=== PATIENT | male | born 1955 | race Caucasian/White ===

== ENCOUNTER 2017-11-23 08:15 | Day surgery (SDC) | payer SELFPAY ==
[2017-11-23] MEDS ORDERED: LIDOCAINE 1% 2 ML INJ ID PRN (08:36)
[2017-11-23] MEDS ORDERED: LR 1,000 ML IV ONE (08:36)
[2017-11-23] MEDS ORDERED: BUPIVACAINE/EPI 0.5% 30 ML SDV ONE ×2 (08:48→10:48)
[2017-11-23] MEDS ORDERED: VANCOMYCIN 1 GM VIAL ONE (08:48)
[2017-11-23] MEDS ORDERED: BACITRACIN 50,000 UNITS/10 ML SYR IRR ONE (08:49)
[2017-11-23] MEDS ORDERED: morphINE SR 15 MG TAB PO ONE (08:53)
[2017-11-23] MEDS ORDERED: TRANEXAMIC ACID 1,000 MG in NS 100 ML IV ONE (08:53)
[2017-11-23] MEDS ORDERED: ACETAMINOPHEN 500 MG TAB PO ONE (08:53)
[2017-11-23] MEDS ORDERED: ceFAZolin 2 GM/DEXTROSE 100 ML IV ONE (08:53)
--- NOTE | 2017-11-23 08:55 | PDHPUP ---
History & Physical Update H&P update statement: This history and physical update is based on an assessment of the patient which was completed after admission or registration (within 24 hours), but prior to the surgery/procedure. H&P update: no change in patient's condition since H&P completed (No changes in H&P)
[2017-11-23] MEDS ORDERED: MIDAZOLAM 2 MG/2 ML VIAL IVP ONE (09:16)
--- NOTE | 2017-11-23 09:17 | PDANEPAE ---
ANE History of Present Illness burst fracture ANE Past Medical History - Cardiovascular History Hx Hypertension: No Hx Arrhythmias: No Hx Chest Pain: No Hx Coronary Artery / Peripheral Vascular Disease: No Hx CHF / Valvular Disease: No Hx Palpitations: No - Pulmonary History Hx COPD: No Hx Asthma/Reactive Airway Disease: No Hx Recent Upper Respiratory Infection: No Hx Oxygen in Use at Home: No Hx Sleep Apnea: No Sleep Apnea Screening Result - Last Documented: Negative - Neurologic History Hx Cerebrovascular Accident: No Hx Seizures: No Hx Dementia: No - Endocrine History Hx Diabetes: No Hypothyroid: No Hyperthyroid: No - Renal History Hx Renal Disorders: No - Liver History Hx Hepatic Disorders: No - Neurological & Psychiatric Hx Hx Neurological and Psychiatric Disorders: No - Cancer History Hx Cancer: No - Congenital Disorder History Hx Congenital Disorders: No - GI History GERD: moderate Hx Gastrointestinal Disorders: No - Other Health History Other Health History: wears reading glasses - Chronic Pain History Chronic Pain: No (back currently) - Surgical History Prior Surgeries: nasal surgeries x3. left foot reconstruction. left great toe rebuilt. left knee scope. hernia repair x2. left shoulder surgery x2 ANE Review of Systems Review of Systems: - Exercise capacity Exercise capacity: >=4 METS METS (RN): 5 METS ANE Patient History - Allergies Allergies/Adverse Reactions: ketamine Allergy (Verified 11/22/17 10:58) felt like he was dying- everything went white Tetracyclines Allergy (Verified 11/22/17 10:44) Rash/Hives - Home Medications Home medications: home medication list seen and reviewed Home Medications: NK [No Known Home Meds] 11/22/17 [Last Taken Unknown] - NPO status NPO Status: no food or drink >8 hours NPO Since - Liquids (Date): 11/22/17 NPO Since - Liquids (Time): 23:00 NPO Since - Solids (Date): 11/22/17 NPO Since - Solids (Time): 23:00 - Anes Hx Anes Hx: no prior problems - Smoking Hx Smoking Status: Never smoked - Family Anes Hx Family Hx Anesthesia Complications: father and brother - have the same issues. father woke up during heart surgery ANE Labs/Vital Signs - Labs Result Diagrams: 11/23/17 09:00 - Vital Signs Blood Pressure: 118/85 Heart Rate: 67 Respiratory Rate: 16 O2 Sat (%): 95 Height: 182.88 cm Weight: 91.626 kg ANE Physical Exam - Airway Mallampati Score: Class 2 Mouth exam: normal dental/mouth exam - Pulmonary Pulmonary: no respiratory distress - Cardiovascular Cardiovascular: regular rate and rhythym - ASA Status ASA Status: II ANE Anesthesia Plan Anesthesia Plan: general endotracheal anesthesia
[2017-11-23] MEDS ORDERED: PROPOFOL/EMULSION 500 MG/50 ML BOTTLE IV ONE ×3 (09:21→11:13)
[2017-11-23] MEDS ORDERED: ONDANSETRON 4 MG/2 ML VIAL ONE (09:21)
[2017-11-23] MEDS ORDERED: ROCURONIUM 50 MG/5 ML VIAL ONE (09:21)
[2017-11-23] MEDS ORDERED: LIDOCAINE 2% 2 ML INJ ONE ×2 (09:21)
[2017-11-23] MEDS ORDERED: fentaNYL 100 MCG/2 ML INJ ONE ×2 (09:21→12:31)
[2017-11-23] MEDS ORDERED: KETOROLAC 30 MG/1 ML SDV ONE (09:21)
[2017-11-23] MEDS ORDERED: DEXAMETHASONE 4 MG/ML VIAL ONE (09:21)
[2017-11-23] MEDS ORDERED: SUCCINYLCHOLINE CHLORIDE 200 MG/10 ML SYR IVP ONE (09:21)
[2017-11-23 09:27] LABS: PLATELET COUNT 265 10^3/uL (150-400)
[2017-11-23] MEDS ORDERED: fentaNYL 100 MCG/2 ML INJ IVP PRN (11:06)
[2017-11-23] MEDS ORDERED: LR 500 ML IV PRN (11:06)
[2017-11-23] MEDS ORDERED: ALBUTEROL 3 ML DEYVIAL IH PRN (11:06)
[2017-11-23] MEDS ORDERED: HYDROmorphONE/DILAUDID 2 MG/ML INJ IVP PRN (11:06)
[2017-11-23] MEDS ORDERED: NALOXONE HCL 0.4 MG/ML INJ IVP PRN (11:06)
[2017-11-23] MEDS ORDERED: ePHEDrine SULFATE 25 MG/5 ML SYR ONE (11:30)
[2017-11-23] MEDS ORDERED: PROPOFOL 200 MG/20 ML VIAL ONE (12:02)
[2017-11-23] MEDS ORDERED: SUGAMMADEX SODIUM 200 MG/2 ML VIAL IVP ONE (12:16)
--- NOTE | 2017-11-23 13:01 | POSTANESTH ---
Post Anesthetic Evaluation Cardiovascular Status: Normal, Stable Respiratory Status: Normal, Stable Level of Consciousness/Mental Status: Can Participate in Eval Pain Control: Adequate, Prn Tx Ordered Nausea/Vomiting Control: Adequate, Prn Tx Ordered Complications Possibly Related to Anesthesia: None Noted
[2017-11-23 13:53] VITALS: BP 104/79
--- NOTE | 2017-11-23 15:30 | SUROPNOTE ---
[facility] Operative Report - Surgery Date: 11/23/17 Pre-operative Diagnoses: T12 burst fracture Thoracolumbar Kyphosis Intractable pain Post-operative Diagnosis: Same Procedures: T10 to L2 percutaneous instrumentation and stabilization Use of intraoperative computer-aided navigation Use of intra-operative fluoroscopy Use of intra-operative neuromonitoring, including EMG and SSEP modalities Surgeon: Sammy Smith MD Assist: None Anesthesia: General endotracheal anesthesia Findings: As expected Estimated Blood Loss: 150mL Drains: None Specimens: None Complications: None Condition: Transferred to PACU in stable condition. Implants: [employer] Solera Voyager 5.5mm Screws: 6.5x45mm x 8 Rods: 160mm CoCr bilaterally Indications: This patient was seen in my office and diagnosed with a T12 burst fracture, with local kyphosis and intractable pain. I have explained all options of treatment for the patient, and the patient has elected to proceed with operative management. I have explained all risks, benefits, and alternatives of the proposed procedure. The risks that we have discussed include , blindness, nerve damage, infection, dural tear, failure of surgery to alleviate pre-operative symptoms, and possible need for further operation. I explained separately the risks of allograft, including infection and disease transfer. In addition to the aforementioned procedure, I discussed with the patient that other procedures may be indicated during the course of surgery that would be considered in the patients best interest. The patient expressed understanding of this and agreed to move forward with operative management. Pre-operative: The proposed incision site was marked in the pre-operative holding area by me. The patient was then taken to the operating room in stable condition. Following smooth induction of general anesthesia, the patient was positioned prone on a Deangelo table with all down surfaces well-padded. The patient was then prepped and draped in the usual sterile fashion. Pre-operative antibiotics were administered within one hour of the incision. A surgical timeout was performed, and all parties involved in the procedure were in agreement on the correct patient, location, and procedure to be performed. Approach and dissection: The proposed levels were identified using C-arm fluoroscopy and the skin was marked for the proposed incision. A long navigation pin was placed into the PSIS for navigation purposes. Navigation: At this point, the patient was covered, and an intra-operative CT scan was performed. Computer-aided stereotactic navigation would be used throughout all of the instrumentation portion of the case. Pedicle screw placement: Using a freehand technique with fluoroscopic assistance, a standard entry point was selected based on bony landmarks. The pedicle tract was then cannulated using a 5.5mm tap. An appropriately-sized screw was then placed. This sequence was performed for all levels that would be included in the fusion. An appropriately-sized screw was placed at each level. CT imaging: At this point, a second CT scan was performed to ensure that the proper placement of all screws. All screws were determined to be well-positioned. No further re-placement was considered necessary. Gerardo and set screw placement: An appropriately-sized gerardo was then placed into the pedicle screw heads, with ample gerardo extending from either end. These were under-contoured to reduce the fracture to the gerardo, which was confirmed by lateral xray. Set screws were then placed into all pedicle screws over the rods, and tensioned using a torque- limited screwdriver. Final xrays were taken to show proper gerardo placement and fracture reduction. Closure: The surgical field was then copiously irrigated with sterile saline. Vancomycin powder was then applied to the surgical field. A small drain was placed deep to the fascia and brought out of the skin superior and laterally. The drain was then sewn to skin. #1 vicryl suture were used to repair the fascia in an interrupted fashion. Then 2-0 interrupted sutures were used to repair the dermal layer, and a separate 3-0 monofilament suture was used to repair the subcutaneous layer in a running fashion. All sutures used were absorbable. Topical adhesive was then applied to the skin and allowed to dry. A sterile island dressing was applied over the surgical incision. A surgical count was performed before initiation of closure and following the procedure, and all were correct. I was present for all critical portions of the procedure. Neuromonitoring: SSEP and EMG were used throughout the case from incision until the beginning of closure. There were no significant changes throughout the case, and SSEP signals were at their pre-surgical baseline levels before surgical closure was initiated. Recovery: The patient was extubated uneventfully in the operating room. The patient was taken to the recovery room in stable condition. Sequential compression devices for VTE prophylaxis were applied to the patients lower extremities, and were ordered to be used while the patient was non-ambulatory. Chemical VTE prophylaxis was considered to be contraindicated for this patient because of the risk of bleeding near the epidural space. Sammy Smith MD
== END 2017-11-23 14:20 | disposition home or self-care (01) ==
LOC: F3N 08:15 → UNDOADMIN 08:15 → FSGY 08:15 → EDSTATUS 13:00 → FSGY 14:20 → UNDODISIN 14:20
PROVIDERS: ATTEND Orthopaedic Surgery Orthopaedic Surgery of the Spine
PROC: 0PS434Z Reposition Thoracic Vertebra with Internal Fixation Device, Percutaneous Approach (ICD-10-PCS; principal; 2017-11-23 09:00)
PROC: 8E0WXBZ Computer Assisted Procedure of Trunk Region (ICD-10-PCS; principal; 2017-11-23 09:00)
PROC: 4A1004G Monitoring of Central Nervous Electrical Activity, Intraoperative, Open Approach (ICD-10-PCS; principal; 2017-11-23 09:00)
DX: S22.081A Stable burst fracture of T11-T12 vertebra, initial encounter for closed fracture (principal); M40.15 Other secondary kyphosis, thoracolumbar region; V86.56XA Driver of dirt bike or motor/cross bike injured in nontraffic accident, initial encounter
CPT/HCPCS: C1713; J0330; J0690; J1100; J1885; J2250; J2405; J2704; J3010; J3370